=== PATIENT | male | born 1965 | race Caucasian/White ===

== ENCOUNTER 2017-09-24 08:11 | Day surgery (SDC) | payer OTHER ==
[~2017-09-24 08:11] MED LIST: ACETAMINOPHEN 1,000 MG/100 ML BTL IV ONE
[2017-09-24] MEDS ORDERED: BUPIVACAINE 0.5% W/EPI MPF 30 ML VIAL IVP ONE (08:12)
[2017-09-24] MEDS ORDERED: KETOROLAC 30 MG/ML VIAL IVP ONE (08:12)
[2017-09-24] MEDS ORDERED: PROPOFOL 10 MG/ML VIAL IV ONE (08:12)
[2017-09-24] MEDS ORDERED: METHYLPREDNISOLONE 40MG/VIAL IM ONE (08:12)
[2017-09-24] MEDS ORDERED: FENTANYL PF 100MCG/2ML VIAL IV ONE (08:12)
[2017-09-24] MEDS ORDERED: LIDOCAINE 2% MDV (20MG/ML) 20ML VIAL IV ONE (08:12)
[2017-09-24] MEDS ORDERED: HYDROCODONE/APAP 7.5/325MG TABLET PO ONE (08:12)
--- NOTE | 2017-09-24 11:08 | Operative Note ---
DATE: 09/24/2017 PREOPERATIVE DIAGNOSIS: ARTHROFIBROSIS OF THE LEFT KNEE. POSTOPERATIVE DIAGNOSIS: ARTHROFIBROSIS OF THE LEFT KNEE. PROCEDURE: 1. LEFT KNEE MANIPULATION. 2. LEFT KNEE INJECTION. STAFF SURGEON: MALU CHENG M.D. ANESTHESIA: GENERAL. PREPARATION: CHLORAPREP. INDIVIDUAL CONSIDERATIONS: NONE. PROCEDURE: The patient was taken to the Operating Room and placed supine on the operating table. He had a successful induction of a general anesthetic. I then went ahead and manipulated his knee. I got him into full extension and then I flexed him at about 80 degrees, started feeling resistance and easily brought him to about 130 degrees of flexion. I then prepped him superolaterally with ChloraPrep and injected 20 mL of 0.50% Marcaine with Epinephrine along with 40 mg of DepoMedrol through a sterile 18-gauge needle and a BandAid was applied. His anesthesia was reversed and he was taken back to Recovery in good condition. There were no complications. JOB NUMBER: [id number] MTDD
== END 2017-09-24 09:50 | disposition home or self-care (01) ==
LOC: SUR 08:11
PROVIDERS: ATTEND Orthopaedic Surgery
DX: M24.662 Ankylosis, left knee (principal); E11.9 Type 2 diabetes mellitus without complications; Z79.84 Long term (current) use of oral hypoglycemic drugs; K21.9 Gastro-esophageal reflux disease without esophagitis; Z96.652 Presence of left artificial knee joint
CPT/HCPCS: 27570; 20610; 01380; 36416; 82948; J1885; J3010; J1030

== ENCOUNTER 2018-04-15 07:05 | Day surgery (SDC) | payer OTHER ==
[~2018-04-15 07:05] MED LIST changes: -ACETAMINOPHEN 1,000 MG/100 ML BTL IV ONE; +CEFAZOLIN 2 Gram 2 GM/50 ML BAG IVPB ONE; +CELECOXIB 100 MG CAPSULE PO ONE; +FAMOTIDINE 20MG TABLET PO ONE; +MECLIZINE 25 MG TABLET PO ONE; +METOCLOPRAMIDE 10 MG TABLET PO ONE; +VANCOMYCIN HCL 1,000 MG in DEXTROSE 5 % IN WATER 250 ML IVPB ONE
[2018-04-15 08:05] LABS: ABO GROUP B; RH TYPE POSITIVE
[2018-04-15 08:06] LABS: ANTIBODY SCREEN NEGATIVE (NEGATIVE)
[2018-04-15] MEDS ORDERED: NALOXONE 0.4 MG/1 ML VIAL IVP PRN (10:52)
[2018-04-15] MEDS ORDERED: TRAMADOL HCL 50 MG TABLET PO PRN (10:52)
[2018-04-15] MEDS ORDERED: ONDANSETRON HCL IV 4 MG/2 ML VIAL IVP PRN (10:52)
[2018-04-15] MEDS ORDERED: ACETAMINOPHEN 325 MG TAB PO PRN (10:52)
[2018-04-15] MEDS ORDERED: ACETAMINOPHEN W/ CODEINE 300MG/60MG TABLET PO PRN ×2 (10:52)
[2018-04-15] MEDS ORDERED: KETOROLAC 30 MG/ML VIAL IVP PRN ×2 (10:52)
[2018-04-15] MEDS ORDERED: ZOLPIDEM TARTRATE 5 MG TABLET PO PRN (10:52)
[2018-04-15] MEDS ORDERED: DIPHENHYDRAMINE HCL 25 MG CAPSULE PO PRN (10:52)
[2018-04-15] MEDS ORDERED: AL HYDROX/MAG HYDROX 30ML UD PO PRN (10:52)
[2018-04-15] MEDS ORDERED: BISACODYL 10 MG SUPP RC PRN (10:52)
[2018-04-15] MEDS ORDERED: MAGNESIUM HYDROXIDE 30 ML UDC PO PRN (10:52)
[2018-04-15] MEDS: HUMULIN R 100 UNIT/ML VIAL SQ SCH ×2 (12:00→18:12)
--- NOTE | 2018-04-15 14:10 | Rehab Evaluation ---
Patient Information - Patient Information Diagnosis: R knee OA Ordered Treatment: PT Evaluate and Treat Status: Initial Evaluation Surgery: Yes (R TKA) Date of Surgery: 04/15/18 Past Medical/Surgical Hx: PAST MEDICAL/SURGICAL HISTORY Past Surgical History LTKA 4-3-18 left knee scopes x's 2 hernia left shoulder x's 2 ganglion right wrist c scope PMH - Respiratory Hx Respiratory Disorders Yes Hx Bronchitis Yes Hx Pneumonia Yes PMH - Cardiovascular Hx Cardiovascular Disorders No Exercise Tolerance Fair Comment: still on crutches cant straighten knee out PMH - Neuro Hx Neurological Disorders No PMH - GI Hx Gastrointestinal Disorders Yes Hx Gastroesophageal Reflux Yes: on meds good control Hx Weight Loss/Weight Gain Yes: 38 lb wt loss since sx PMH - Hx Genitourinary Disorders No PMH - Endocrine Hx Endocrine Disorders Yes Hx Diabetes Yes: recent dx Hx Thyroid Disease No Hx of NIDDM Yes: on Metformin and diet change Comment: blood sugars around 80-110 PMH - Musculoskeletal Hx Musculoskeletal Disorders Yes Hx Arthritis Yes Comment: right knee pain PMH - Psych Hx Psychiatric Problems No PMH - Hematology/Oncology Hx Hematology/Oncology No Disorders Premorbid Status: Detail (The patient was independent with mobility prior to surgery.) Social History: Detail (The patient lives alone in a one story house with 3 steps at the enterance. The home's bathroom is equipped with a tub/shower combination with a hand held shower, shower bench and standard height toilet with a riser seat. The patient has a standard walker and standard cane.) Precautions: [place], Fall, Other (WBAT on the R LE.) - Time With Patient Treatment Procedures: Detail (Initial Evaluation, gait training.) Subjective Information - Subjective Information Per Patient (The patient had no complaints of pain initially, and R knee pain after ambulating which he did not rate.) Objective Data - Mental Status Patient Orientation: Oriented x3 - Visual Perception Appears within normal limits for therapeutic activities - ROM Not within normal limits (The patient's R knee AROM is not within normal limits secondary to surgery, the patient's L knee AROM is almost limited. All other LE AROM is WFL.) - Strength/Tone Not within normal limits (The patient's LE strength was not tested secondary to s/p surgery. Functionally decreased strength is noted in L LE (ie: patient unable to complete single leg stance when putting on pants) R LE strength was functional ie: patient was able to lift LE in and out of bed.) - Bed Mobility Independent (The patient was independent with supine to and from sit transfer and scooting up in bed.) - Transfers Independent (The patient was independent with sit to and from stand and toilet transfer.) - Balance Balance Sitting: Good Balance Standing: Good - Gait Detail (The patient ambulated with standard walker a distance of 180 feet x 1, WBAT on the R LE with occasional verbal cues to slow down and for proper walker technique.) Therapy Assessment - Therapy Assessment Detail (The patient was independent with ambulation and transfers. The patient ambulated with increased speed, however gait was steady. The patient's gait pattern was characterized by decreased knee flexion during bilateral swing phases. Feel the patient will progress well with mobility.) Problem List - Problem List Physical Therapy Problem List: Detail (Bilateral decreased knee AROM and strength.) Goals - Goals Physical Therapy Goals: 1) The patient will be independent with a TKA HEP. 2) The patient will ambulate on stairs with supervision for safety using proper technique. Prognosis - Prognosis Good Plan - Plan Physical Therapy Plan: PT 1-2 sessions for gait training on stairs and instruction in HEP.
[2018-04-15] MEDS: HYDROCODONE/APAP 10/325 TABLET PO PRN ×3 (14:20→19:49)
[2018-04-15] MEDS: HYDROMORPHONE HCL 2 MG/ML VIAL IM PRN (17:51)
[2018-04-15] MEDS: METFORMIN 500 MG TABLET PO SCH (17:53)
[2018-04-15] MEDS: CEFAZOLIN 2 Gram 2 GM/50 ML BAG IVPB SCH (17:57)
[2018-04-15] MEDS: POTASSIUM CHLORIDE/D5-0.9%NACL 20 MEQ/1,000 ML BAG IV SCH ×2 (18:12→19:36)
[2018-04-15] MEDS: DOCUSATE SODIUM 100 MG CAPSULE PO SCH (21:45)
[2018-04-15] MEDS ORDERED: ATORVASTATIN 20 MG TABLET PO SCH (22:00)
[2018-04-16] MEDS: HYDROCODONE/APAP 10/325 TABLET PO PRN ×4 (00:12→12:54)
[2018-04-16] MEDS: CEFAZOLIN 2 Gram 2 GM/50 ML BAG IVPB SCH ×2 (00:13→09:51)
[2018-04-16] MEDS: POTASSIUM CHLORIDE/D5-0.9%NACL 20 MEQ/1,000 ML BAG IV SCH ×2 (04:00→12:52)
[2018-04-16 06:50] LABS: HEMATOCRIT 39.5 % (42.0-52.0); HEMOGLOBIN 13.4 gm/dl (14.0-18.0)
[2018-04-16] MEDS ORDERED: PANTOPRAZOLE SODIUM 40 MG TABLET PO SCH (07:00)
[2018-04-16 07:12] LABS: BLOOD UREA NITROGEN 14 mg/dL (6-20); CREATININE 0.9 mg/dL (0.7-1.2); EST GLOMERULAR FILTRATION RATE > 60 mL/min; GLUCOSE,RANDOM 166 mg/dL (74-109)
--- NOTE | 2018-04-16 08:06 | Rehab Evaluation ---
Patient Information - Patient Information Diagnosis: R knee OA Ordered Treatment: OT Evaluate and Treat Status: Initial Evaluation Surgery: Yes (R TKA) Date of Surgery: 04/15/18 Past Medical/Surgical Hx: PAST MEDICAL/SURGICAL HISTORY Past Surgical History LTKA 4-3-18 left knee scopes x's 2 hernia left shoulder x's 2 ganglion right wrist c scope PMH - Respiratory Hx Respiratory Disorders Yes Hx Bronchitis Yes Hx Pneumonia Yes PMH - Cardiovascular Hx Cardiovascular Disorders No Exercise Tolerance Fair Comment: still on crutches cant straighten knee out PMH - Neuro Hx Neurological Disorders No PMH - GI Hx Gastrointestinal Disorders Yes Hx Gastroesophageal Reflux Yes: on meds good control Hx Weight Loss/Weight Gain Yes: 38 lb wt loss since sx PMH - Hx Genitourinary Disorders No PMH - Endocrine Hx Endocrine Disorders Yes Hx Diabetes Yes: recent dx Hx Thyroid Disease No Hx of NIDDM Yes: on Metformin and diet change Comment: blood sugars around 80-110 PMH - Musculoskeletal Hx Musculoskeletal Disorders Yes Hx Arthritis Yes Comment: right knee pain PMH - Psych Hx Psychiatric Problems No PMH - Hematology/Oncology Hx Hematology/Oncology No Disorders Premorbid Status: Detail (The patient was independent with mobility, meal prep, laundry and home mgmt prior to surgery. His girlfriend is available to assist as needed.) Social History: Detail (The patient lives alone in a one story house with 3 steps and 1 railing at the entrance. The home's bathroom is equipped with a tub/ shower combination with a hand held shower, grab bar, shower bench and standard height toilet with a riser seat and 1 grab bar. The patient has a standard walker.) Precautions: [place], Fall, Other (WBAT on the R LE.) - Time With Patient Total Time Spent With Patient (Min): 35 Treatment Procedures: Detail (OT eval) Subjective Information - Subjective Information Per Patient Objective Data - Pain Pain Present: Yes (-10/06) - Mental Status Patient Orientation: Oriented x3 - Visual Perception Appears within normal limits for therapeutic activities - ROM Within normal limits ([place] UE AROM WNL) - Strength/Tone Within normal limits ([place] UE strength WNL) - Coordination Appears within normal limits for therapeutic activities - Bed Mobility Independent (Ind with supine to sit) - Transfers Independent (Ind with sit to stand from EOB) - Balance Balance Sitting: Good Balance Standing: Good - Sensation Intact - Gait Detail (Pt ambulating in room with standard walker Indly.) - ADL's/IADL's Detail (Pt educated and able to demonstrate learning of modified LE dressing techniques including doffing slippers and donning sweatpants and slip on shoes. Pt did require very minimal assist to doff right slipper sock but reports his girlfriend will assist as needed. Reviewed kitchen and shower safety and modifications, pt verbalized understanding.) Therapy Assessment - Therapy Assessment Detail (Pt able to demonstrate modified LE dressing techniques.) Problem List - Problem List Physical Therapy Problem List: Detail (Bilateral decreased knee AROM and strength.) Occupational Therapy Problem List: Detail (No current IP OT problems identified. ) Goals - Goals Physical Therapy Goals: 1) The patient will be independent with a TKA HEP. 2) The patient will ambulate on stairs with supervision for safety using proper technique. Occupational Therapy Goals: No current IP OT goals identified. Prognosis - Prognosis Good Plan - Plan Physical Therapy Plan: PT 1-2 sessions for gait training on stairs and instruction in HEP. Occupational Therapy Plan: No further IP OT recommended. Thank you for this referral.
[2018-04-16] MEDS: METFORMIN 500 MG TABLET PO SCH (08:43)
[2018-04-16] MEDS: HUMULIN R 100 UNIT/ML VIAL SQ SCH ×2 (08:44→12:51)
[2018-04-16] MEDS ORDERED: KETAMINE HCL 100MG/1ML VIAL INJ ONE (09:48)
[2018-04-16] MEDS ORDERED: PROPOFOL 10 MG/ML VIAL IV ONE (09:48)
[2018-04-16] MEDS ORDERED: MIDAZOLAM HCL 2MG/2ML VIAL IV ONE (09:48)
[2018-04-16] MEDS ORDERED: KETOROLAC 30 MG/ML VIAL IVP ONE (09:48)
[2018-04-16] MEDS: HYDROMORPHONE HCL 2 MG/ML VIAL IM PRN (09:50)
[2018-04-16] MEDS: DOCUSATE SODIUM 100 MG CAPSULE PO SCH (09:50)
--- NOTE | 2018-04-16 09:51 | Physical Therapy Tx Note ---
Physical Therapy Tx Note - Treatment Note Tolerated: Good Total Time Spent With Patient: 25 Physical Therapy Tx Note: Detail (The patient had complaints of level 8 R knee pain after ambulating. The patient ambulated with standard walker a distance of 60 feet x1 WBAT on the R LE. The patient ambulated on stairs with supervision for safety using proper technique. The patient completed R TKA exercises including: heel slides seated, ankle pumps, quad sets, hamstring sets, gluteal sets, SLR (reviewed) the patient was unable to complete due to pain complaints. The patient has met all inpatient PT goals and is discharged from inpatient PT.) Physical Therapy Problem List: Detail (Bilateral decreased knee AROM and strength.) Physical Therapy Goals: 1) The patient will be independent with a TKA HEP. ( Goal Met). 2) The patient will ambulate on stairs with supervision for safety using proper technique. ( Goal Met) Physical Therapy Plan: The patient has met all inpatient goals and is discharged from inpatient PT. The patient is to recieve Home PT.
[2018-04-16] MEDS ORDERED: FERROUS SULFATE 325 MG TAB PO SCH (10:00)
[2018-04-16] MEDS ORDERED: RIVAROXABAN 10 MG TABLET PO SCH (10:00)
[2018-04-16] MEDS ORDERED: ASPIRIN 325 MG TAB ENTERIC-COATED PO SCH (10:00)
[2018-04-16] MEDS ORDERED: BUPIVACAINE 0.5% W/EPI MPF 30 ML VIAL IVP ONE (12:44)
[2018-04-16] MEDS ORDERED: ROPIVACAINE HCL (NAROPIN) /PF 5MG/ML 20ML VIAL IV ONE (12:49)
[2018-04-16] MEDS ORDERED: DEXAMETHASONE 4 MG/ML 1ML VIAL IVP ONE (12:49)
[2018-04-16] MEDS ORDERED: TRANEXAMIC ACID 1,000 MG/10 ML ML IV ONE (13:09)
[2018-04-16] MEDS ORDERED: 0.9 % SODIUM CHLORIDE 10 ML VIAL IVP ONE (13:09)
--- NOTE | 2018-04-16 13:20 | Operative Note ---
DATE OF SURGERY: 04/15/2018 PREOPERATIVE DIAGNOSIS: End-stage arthrosis of the right knee. POSTOPERATIVE DIAGNOSIS: End-stage arthrosis of the right knee. OPERATION: Cemented right total knee arthroplasty using [employer] Latia II components with a size 6 Oxinium femur, a size 6 stem tibia baseplate, a 9 mm lipped highly crosslinked tibial insert, and a 35 mm all plastic patella. Staff Surgeon: Tushar Bronson MD Anesthesia: Spinal. PREPARATION: Chloraprep. INDIVIDUAL CONSIDERATIONS: None. PROCEDURE: The patient was taken to the operating room, placed supine on the operating room table. Had a successful induction of a spinal anesthetic. The right lower extremity was prepped and draped in the usual fashion. The patient had a midline approach to the knee. The limb was elevated and tourniquet was inflated to 250 mmHg. Sharp dissection carried down through skin and subcutaneous tissue. Small veins were coagulated with a Bovie. A medial arthrotomy was performed. The patella was everted and the knee was flexed. He had changes in the medial and patellofemoral compartments. Fat pad was resected, ACL was sacrificed, provisional anterior meniscectomies were performed. The capsule was released from the medial proximal tibia. The initial femoral fighter pilot hole was then made freehand. The intramedullary femoral cutting jig was placed. It was cut in 7.0 degrees of valgus and adjusted for rotation and secured with pins for a 10 mm resection. The initial transverse cut was then made. The skin guide was placed in the anterior and posterior fighter pilot holes. It was found that a size 6 would be appropriate but I needed to translate it anteriorly 2 mm. The anterior and posterior cuts followed by chamfer cuts were made. Osteophytes removed, and a size 6 trial was placed and found to fit well. The tibia was brought forward, and the remainder of the meniscal remnants removed with a Bovie. The extraarticular tibial cutting jig was placed. It was cut in neutral with a 3-degree AP slope. It was set for a 9 mm resection keyed off the high lateral side and secured with pins. When cutting the tibia, care was taken to preserve the PCL insertion on the tibia. After removing osteophytes, I could easily fit a size 6. It was adjusted for rotation and secured with pins. With a 9 mm trial and femoral trial, there was excellent motion and stability. Ligamentous balance, rotation, and alignment were thought to be normal. Femoral fighter pilot holes were impacted and a triflange tibial keel stamp was impacted and these trial components were removed. The patient had a thick patella. Roughly 9 mm of bone was removed with an oscillating saw. I could easily fit a 35 patella. The 3 fighter pilot holes were drilled. The tourniquet was let down briefly to get bleeders posteriorly. Placed it back up again. The knee was then thoroughly irrigated out with pulsatile Betadine and saline to remove any visual or palpable debris. Bony surfaces were then dried. A size 6 stem tibia baseplate was cemented into place followed by impaction of the 9 mm lipped tibial insert followed by cementing in the size 6 Oxinium femur followed by cementing in the 35 mm all plastic patella. The implant surfaces were compressed, excess cement was removed, and after the cement had set, there was excellent motion and stability, ligamentous balance, rotation, alignment, and patellofemoral tracking were normal. No lateral release was required. After irrigation, the tourniquet was let down. Hemostasis was obtained with a Bovie. The capsule was then closed with a running #2 quill, subcu was closed with running 0 quill in layers, skin was closed with vicki. Prior to closure, I did infiltrate the skin and subcutaneous tissue and periosteum with 30 mL of 0.5% Marcaine with epinephrine. After closure, I injected the knee with 30 mL of saline mixed with 1 g of tranexamic acid. He did receive 1 g of tranexamic acid IV prior. The patient tolerated procedure well. Needle and sponge counts were correct. Estimated blood loss was minimal, and he was taken back to recovery in good condition. There were no complications. FUNMILAYO
--- NOTE | 2018-04-17 10:20 | Discharge Summary ---
DATE OF ADMISSION: 04/15/2018 DATE OF DISCHARGE: 04/16/2018 DATE OF SURGERY: 04/15/2018 HISTORY: The patient is a delightful 52-year-old male who presents with end-stage arthrosis of right hip. He was admitted for right total hip arthroplasty. Postoperatively he did well. His hospital course was unremarkable. Discharge hemoglobin was 13.4. My plan is to discharge him home in the care of his family and home PT visiting nurse has been arranged. He will be given [place] for pain and Xarelto followed by aspirin for DVT prophylaxis. He will follow up in my office in 4 weeks. Visiting nurse will remove the sutures in 2 weeks. FINAL DIAGNOSIS/PRIMARY DIAGNOSIS: End-stage arthrosis of the right hip. OPERATIONS AND PROCEDURES: Cementless right total hip arthroplasty. FUNMILAYO
== END 2018-04-16 13:10 | disposition home or self-care (01) ==
LOC: MEDSURG 07:05 → UNDOADMOB 07:05 → HOP 07:05 → MEDSURG 07:05 → INTOOBSV 07:05 → EDSTATUS 13:00 → HOP 04-16 13:10 → UNDODISOB 04-16 13:10
PROVIDERS: ATTEND Orthopaedic Surgery
DX: M17.12 Unilateral primary osteoarthritis, left knee (principal); E78.00 Pure hypercholesterolemia, unspecified; E11.9 Type 2 diabetes mellitus without complications; K21.9 Gastro-esophageal reflux disease without esophagitis; F17.210 Nicotine dependence, cigarettes, uncomplicated
CPT/HCPCS: 27447; 01402; 64447; 85018; 85014; 80048; 86900; 86901; 86850; J1885 ×2; J3370; J1170 ×2; J0690 ×2; J3490 ×4; J2795; 76942; 97110; 97530; J3480; J7060

== ENCOUNTER 2018-08-20 06:39 | Day surgery (SDC) | payer BC, OTHER ==
[~2018-08-20 06:39] MED LIST changes: +ACETAMINOPHEN 1,000 MG/100 ML BTL IV ONE; -CELECOXIB 100 MG CAPSULE PO ONE; -FAMOTIDINE 20MG TABLET PO ONE; -MECLIZINE 25 MG TABLET PO ONE; -METOCLOPRAMIDE 10 MG TABLET PO ONE; -VANCOMYCIN HCL 1,000 MG in DEXTROSE 5 % IN WATER 250 ML IVPB ONE
[2018-08-20] MEDS ORDERED: MORPHINE SULFATE PF 10MG/10ML VIAL IV ONE (06:40)
[2018-08-20] MEDS ORDERED: BUPIVACAINE 0.25% MPF 30ML VIAL IVP ONE (06:40)
[2018-08-20] MEDS ORDERED: SEVOFLURANE 250 ML INH ONE (06:40)
[2018-08-20] MEDS ORDERED: HYDROCODONE/APAP 7.5/325MG TABLET PO ONE ×2 (06:40→10:54)
[2018-08-20] MEDS ORDERED: KETOROLAC 30 MG/ML VIAL IVP ONE ×2 (06:40→10:57)
[2018-08-20] MEDS ORDERED: MIDAZOLAM HCL 2MG/2ML VIAL IV ONE (06:40)
[2018-08-20] MEDS ORDERED: DEXAMETHASONE 4 MG/ML 1ML VIAL IVP ONE (06:40)
[2018-08-20] MEDS ORDERED: KETAMINE HCL 100MG/1ML VIAL INJ ONE (06:40)
[2018-08-20] MEDS ORDERED: PROPOFOL 10 MG/ML VIAL IV ONE (06:40)
[2018-08-20] MEDS ORDERED: BUPIVACAINE LIPOSOME/PF 133MG/10ML VIAL IV ONE (06:40)
[2018-08-20] MEDS ORDERED: RINGERS SOLUTION,LACTATED 1,000 ML IV ONE (07:05)
[2018-08-20] MEDS ORDERED: BUPIVACAINE 0.5% W/EPI MPF 30 ML VIAL SQ ONE (10:00)
[2018-08-20] MEDS ORDERED: RINGERS SOLUTION,LACTATED 300 ML IV ONE (10:21)
--- NOTE | 2018-08-21 11:20 | Operative Note ---
DATE OF SURGERY: 08/20/2018 PREOPERATIVE DIAGNOSIS: Tear of the rotator cuff on the right. POSTOPERATIVE DIAGNOSES: 1. Chronically torn right rotator cuff tear. 2. Posterosuperior labral tear. 3. Severe impingement right shoulder. 4. Arthrosis right distal clavicle. OPERATION: 1. Repair of a chronically torn right rotator cuff tear. 2. Right shoulder arthroscopy with interarticular debridement. 3. Right shoulder open acromioplasty, CA ligament resection, subacromial bursectomy. 4. Right shoulder distal clavicle resection. STAFF SURGEON: Tushar Bronson MD ANESTHESIA: General. PREPARATION: Chloraprep. INDIVIDUAL CONSIDERATIONS: None. PROCEDURE: The patient was taken to the operating room, placed supine on the operating room table. He had a successful induction with general anesthetic. He was then placed in a semi-seated beach chair position. His right arm and shoulder were prepped and draped in the usual fashion. Examination under anesthesia showed no instability. The patient had posterior portal identified for arthroscopy. Skin was infiltrated with 0.5% Marcaine with epinephrine prior. An 18-gauge spinal needle was placed in the joint, and the joint was inflated with normal saline with a 60-mL syringe. A stab wound was made, and a blunt-tipped trocar for the scope was placed in the joint. The joint was inflated with normal saline. An anterior accessory portal was then made just inferior to the intact long head of the biceps tendon in a retrograde fashion with a Wissinger thanh, and the joint was irrigated out. The patient had an obvious tear of the supraspinatus. He had fraying of the labrum superiorly and posteriorly. A shaver was introduced to debride this out. Glenohumeral joint was normal. Subscap tendon was normal. No loose bodies were seen inferiorly or in the pouch. After irrigation, portals were closed with vicki. The patient had an anterior approach to the subacromial space and distal clavicle. Skin was again infiltrated with 0.5% Marcaine with epinephrine prior. Sharp dissection carried down through skin and subcutaneous tissues. Small veins were coagulated with a Bovie. An anterior deltoid interval was developed. Care was taken not to split the deltoid more than about 4 cm distal to the anterior tip of the acromion to prevent injury to the axillary nerve. Once in the subacromial space, it was a very tight subacromial space. There was a large merritt of fluid consistent with a tear. The deltoid was then taken subperiosteally off the anterior aspect of the downsloping acromion, over the top of the intact CA ligament, and off the anterior aspect of a highly degenerated distal clavicle. CA ligament was resected with a Bovie. Distal clavicle was resected with an oscillating saw taking about 1 cm. An anterior acromioplasty was performed taking about 1 cm, most of this being spur, and tapering towards posteromedially to include the spurs at the AC joint. The undersurface was smoothed with a rasp. A complete bursectomy was performed. The patient had about 1 cm to 1.5 cm tear of the supraspinatus. It was easily mobilized for repair. It was debrided to good bleeding tendon, and a small crescentic trough was made in the tuberosity using a wilda. Then multiple #1 Ethibond sutures were placed in retention fashion near the end of the tendon, and then it was drawn into the trough through holes and pulled through and tied down distally. This effected a near anatomic repair. I put the shoulder through a full range of motion. There was no further impairment. After irrigation, deltoid was reattached to the remaining acromion with multiple interrupted #2 Vicryl going directly through the bony acromion. The periosteal cuff of the distal clavicle was closed with running #2 Vicryl. Anterior deltoid interval was closed with running #1 Vicryl. Subcu was closed in layers with 3-0 plus Vicryl and skin was closed with vicki. The patient had about 20 mL of 0.5% Marcaine with epinephrine along with 10 mg of morphine injected into the subacromial space. A sterile bulky compressive dressing and sling were applied. The patient tolerated the procedure well. Needle and sponge counts were correct. Estimated blood loss was minimal. He was taken back to recovery in good condition. There were no complications. [facility]ITAL[facility]i
== END 2018-08-20 11:25 | disposition home or self-care (01) ==
LOC: SUR 06:39
PROVIDERS: ATTEND Orthopaedic Surgery
DX: M75.101 Unspecified rotator cuff tear or rupture of right shoulder, not specified as traumatic (principal); S43.431A Superior glenoid labrum lesion of right shoulder, initial encounter; M75.41 Impingement syndrome of right shoulder; M19.011 Primary osteoarthritis, right shoulder; E78.00 Pure hypercholesterolemia, unspecified; E11.9 Type 2 diabetes mellitus without complications; K21.9 Gastro-esophageal reflux disease without esophagitis; F17.210 Nicotine dependence, cigarettes, uncomplicated
CPT/HCPCS: 29822; 23412; 23415; 23125; 01610; 64418; J1885; J0690; C9290; J3490; 76942; J7120